=== PATIENT | female | born 1970 | race Asian ===

== ENCOUNTER 2019-02-27 09:30 | Day surgery (SDC) | payer OTHER | END 2019-02-27 11:02 | disposition home or self-care (01) | LOC: OR 09:30 | PROC: 3E0R33Z Introduction of Anti-inflammatory into Spinal Canal, Percutaneous Approach (ICD-10-PCS; principal; 2019-02-27) | PROC: B01BYZZ Fluoroscopy of Spinal Cord using Other Contrast (ICD-10-PCS; 2019-02-27) | DX: M50.123 Cervical disc disorder at C6-C7 level with radiculopathy (principal) | CPT/HCPCS: J1020 ==

== ENCOUNTER 2019-10-15 09:07 | Day surgery (SDC) | payer OTHER | END 2019-10-15 10:26 | disposition home or self-care (01) | LOC: OR 09:07 | PROC: 3E0U3BZ Introduction of Anesthetic Agent into Joints, Percutaneous Approach (ICD-10-PCS; principal; 2019-10-15) | PROC: 3E0U33Z Introduction of Anti-inflammatory into Joints, Percutaneous Approach (ICD-10-PCS; 2019-10-15) | PROC: B01BYZZ Fluoroscopy of Spinal Cord using Other Contrast (ICD-10-PCS; 2019-10-15) | DX: M16.11 Unilateral primary osteoarthritis, right hip (principal) | CPT/HCPCS: J1020; J3490 ==